=== PATIENT | female | born 1960 | race American Indian/Alaskan Native ===

== ENCOUNTER 2016-11-12 13:32 | Emergency (ER) | payer SELFPAY ==
[2016-11-12] MEDS ORDERED: ZESTRIL ONE (14:00)
[2016-11-12] MEDS ORDERED: ZESTRIL PO ONE (14:03)
[2016-11-12 15:02] LABS: Bilirubin,Urine NEG (Negative); Blood,Urine NEG (Negative); Ketones,Urine NEG (Negative); Leukocyte Esterase,Urine LG (Negative); Mucus,Urine FEW /HPF; Nitrite,Urine NEG (Negative); Protein,Urine <15 mg/dL mg/dL (Negative); Urobilinogen,Urine < 2.0 mg/dL (<2.0)
--- NOTE | 2016-11-12 15:14 | Cat Scan Report ---
FINAL REPORT EXAM: CT HEAD/BRAIN WO CON HISTORY: blurry vision, headache, BP high TECHNIQUE: CT imaging acquired through the head without intravenous contrast. Transaxial reformations are provided. PRIORS: None. FINDINGS: The ventricles, cisterns and sulci are normal. No intraparenchymal or extra-axial mass, hemorrhage, or mass effect. Mccall and white-matter differentiation is within normal limits. Normal spherical shape of the globes. Paranasal sinuses and mastoid air cells are clear. No skull or facial fracture visualized. IMPRESSION: No acute intracranial abnormality.
[2016-11-12 15:16] LABS: Anion Gap 16 mmol/L; Blood Urea Nitrogen 20 mg/dL (7-17); Calcium 8.9 mg/dL (8.4-10.2); Carbon Dioxide 27 mmol/L (22-30); Chloride 101.2 mmol/L (98-107); Creatine Kinase 701 units/L (30-135); Glucose 100 mg/dL (65-100); Sodium 140 mmol/L (137-145)
[2016-11-12 15:44] LABS: Basophils % (Auto) 0.6 % (0.0-1.8); Hematocrit 41.1 % (30.3-42.9); Hemoglobin 13.5 gm/dl (10.1-14.3); Mean Corpuscular HGB Conc 33 % (30-34); Mean Corpuscular Hemoglobin 30 pg (28-32); Mean Corpuscular Volume 91 fl (79-97); Platelet Count 243 K/mm3 (140-440); Red Cell Distribution Width 13.3 % (13.2-15.2); White Blood Count 7.3 K/mm3 (4.5-11.0)
--- NOTE | 2016-11-13 00:54 | Emergency Department Report ---
ED Dizziness HPI - General Chief Complaint: High BP Stated Complaint: HIGH BP Time Seen by Provider: 11/13/16 00:43 Source: patient Mode of arrival: Ambulatory Limitations: No Limitations - History of Present Illness Initial Comments: Patient is a 56-year-old female with a history of hypertension is attempting to the ER today with treatment in dizziness due to elevated blood pressure patient reports she takes nifedipine ER 60 mg daily and lisinopril 20 mg by mouth daily. She has not been taking her lisinopril for 3 weeks due to insurance issues and presents to the ER for refill. Otherwise no fevers, KILLIAN, blurry vision, hearing changes, chest pain, shortness of breath, abdominal pain, nausea , vomiting, diarrhea, trauma, falls, sick contacts, or travel MD Complaint: dizziness, lightheadedness -: days(s) Improves With: other (BP medication) Worsens With: nothing Associated Symptoms: denies other symptoms. denies: chest pain, shortness of breath, syncope - Related Data Previous Rx's Medication Instructions Recorded Last Taken Type Lisinopril [Zestril TAB] 20 mg PO QDAY #30 tablet 11/13/16 Unknown Rx NIFEdipine [Nifedipine ER] 60 mg PO DAILY #30 tab.er.24 11/13/16 Unknown Rx Allergies Allergy/AdvReac Type Severity Reaction Status Date / Time fish derived Allergy Anaphylaxis Verified 11/12/16 13:44 ED Review of Systems ROS: Stated complaint: HIGH BP Other details as noted in HPI Comment: All other systems reviewed and negative ED Past Medical Hx - Past Medical History Hx Hypertension: Yes Additional medical history: OBESITY - Surgical History Additional Surgical History: hysterectomy. - Social History Smoking Status: Never Smoker Substance Use Type: None - Medications Home Medications: Home Medications Medication Instructions Recorded Confirmed Last Taken Type Lisinopril [Zestril TAB] 20 mg PO QDAY #30 tablet 11/13/16 Unknown Rx NIFEdipine [Nifedipine ER] 60 mg PO DAILY #30 tab.er.24 11/13/16 Unknown Rx ED Physical Exam - General Limitations: No Limitations General appearance: alert, in no apparent distress - Head Head exam: Present: atraumatic, normocephalic - Eye Eye exam: Present: normal appearance - ENT ENT exam: Present: mucous membranes moist - Neck Neck exam: Present: normal inspection - Respiratory Respiratory exam: Present: normal lung sounds bilaterally. Absent: respiratory distress - Cardiovascular Cardiovascular Exam: Present: regular rate, normal rhythm. Absent: systolic murmur, diastolic murmur, rubs, gallop - GI/Abdominal GI/Abdominal exam: Present: soft, normal bowel sounds - Extremities Exam Extremities exam: Present: normal inspection - Back Exam Back exam: Present: normal inspection - Neurological Exam Neurological exam: Present: alert, oriented X3, normal gait - Psychiatric Psychiatric exam: Present: normal affect, normal mood - Skin Skin exam: Present: warm, dry, intact, normal color. Absent: rash ED Course Vital Signs 11/12/16 11/12/16 11/12/16 13:46 14:08 15:28 Temperature 98.2 F Pulse Rate 74 74 78 Respiratory 19 20 Rate Blood Pressure 188/100 188/100 Blood Pressure 184/96 [Right] O2 Sat by Pulse 100 99 Oximetry 11/13/16 11/13/16 00:12 00:19 Temperature Pulse Rate 79 Respiratory 21 20 Rate Blood Pressure 124/74 Blood Pressure [Right] O2 Sat by Pulse 97 98 Oximetry ED Medical Decision Making - Lab Data Result diagrams: 11/12/16 14:43 11/12/16 14:43 - Radiology Data Radiology results: report reviewed (CT head WNL) - Medical Decision Making Patient given her lisinopril dose 20 mg by mouth here in the ED. Patient's blood pressure has improved, and is now normal. I advised the patient not to miss any doses of her medication and she does run out and she cannot see her primary care to come back to the ER. Patient does report she has no insurance. I have given the patient information for a clinic here in [facility]. Critical care attestation.: If time is entered above; I have spent that time in minutes in the direct care of this critically ill patient, excluding procedure time. ED Disposition Clinical Impression: Hypertension Disposition: DISCHARGED TO HOME OR SELFCARE Is pt being admited?: No Does the pt Need Aspirin: No Condition: Stable Instructions: Hypertension (ED) Prescriptions: Lisinopril [Zestril TAB] 20 mg PO QDAY #30 tablet NIFEdipine [Nifedipine ER] 60 mg PO DAILY #30 tab.er.24 Referrals: PRIMARY CARE, [Primary Care Provider] - 3-5 Days [facility] [Other] - 3-5 Days Time of Disposition: 00:55
[2016-11-13 02:40] VITALS: BP 119/72
== END 2016-11-13 02:48 | disposition home or self-care (01) ==
LOC: ED 13:32
DX: I10 Essential (primary) hypertension (principal)
CPT/HCPCS: 36415; 70450; 80048; 81001; 82550; 84484; 85025; 93005; 93010; 99284